=== PATIENT | female | born 1980 ===

== ENCOUNTER → 2017-06-17 | Outpatient (CLI) | payer OTHER ==
[2017-06-17 11:05] LABS: Hepatitis B Surface Antibody Negative
== END | disposition home or self-care (01) ==
LOC: LAB 08:59
PROVIDERS: ATTEND Surgery
DX: Z20.5 Contact with and (suspected) exposure to viral hepatitis (principal); Z20.9 Contact with and (suspected) exposure to unspecified communicable disease; Y99.0 Civilian activity done for income or pay
CPT/HCPCS: 36415; 86703; 86704; 86705; 86706; 86803; 87340